=== PATIENT | female | born 1995 | race African-American/Black ===

== ENCOUNTER 2017-02-11 19:03 | Emergency (ER) | payer OTHER ==
[~2017-02-11] VITALS: Ht 170.2 cm; Wt 75.0 kg
[~2017-02-11 19:03] MED LIST: METR-1 PO
[2017-02-11 19:05] VITALS: BP 128/65; PULSE 90; RESP 16; TEMP 98.4; O2SAT 100
--- NOTE | 2017-02-11 19:08 | PD ---
Physical Exam Time Seen by Provider: 19:06 Narrative 21 y/o female presents with cough, congestion, sore throat for one week. VSS seen at triage desk. Awaiting bed placement. Data Data Last Documented VS Vital Signs Date Time Temp Pulse Resp B/P Pulse Ox O2 Delivery O2 Flow Rate FiO2 02/11/17 19:05 98.4 90 16 128/65 100 MDM Medical Record Reviewed: Yes Supervised Visit with NOEL: Yes Nadir Curry Feb 11, 2017 19:08
[2017-02-11] MEDS ORDERED: PENI500T PO (19:21)
--- NOTE | 2017-02-11 19:21 | PD ---
HPI Chief Complaint: Cold / Flu Symptoms Time Seen by Provider: 19:18 Travel History International Travel<30 days: No Contact w/Intl Traveler<30days: No Traveled to known affect area: No History of Present Illness HPI 21-year-old black female presents to emergency Department with complaints of sore throat, cough, congestion, posttussive emesis worse at night when she goes to lay down for bed. Patient's symptoms is been present now for the past week. She denies any fever chills. No shortness of breath or wheezing. No nausea. No bowel pain. No dysuria, frequency. PFSH Past Medical History Hx Anticoagulant Therapy: No ADHD: Yes Anemia: Yes Asthma: Yes Cardiovascular Problems: No Chemotherapy: No Cerebrovascular Accident: No Developmental Delay: No Diabetes: No Diminished Hearing: No Respiratory: No Immunizations Current: Yes Tetanus Vaccination: < 5 Years ?: Not LMP: 2 WEEKS PRIOR : 0 Para: 0 Past Surgical History Surgical History: No Previous Surgery Hysterectomy: No Social History Alcohol Use: No (OCCASIONALLY) Tobacco Use: Yes (1 BLACK MILD/DAY) Substance Use: No Allergies-Medications (Allergen,Severity, Reaction): Coded Allergies: No Known Allergies (Verified , 02/11/17) Reported Meds & Prescriptions Reported Meds & Active Scripts Active Penicillin V Potassium 500 Mg Tab 500 Mg PO Q12HR Review of Systems Except as stated in HPI: all other systems reviewed are Neg Physical Exam Narrative GENERAL: Well-developed, well-nourished in no acute distress. Nontoxic appearing. HEAD: Normocephalic, atraumatic. EYES: Pupils equal round and reactive. Extraocular motions intact. No scleral icterus. No injection or drainage. ENT: TMs clear without erythema. The external auditory canals clear. Nose: clear . Posterior pharynx is erythematous and moist. No tonsillar edema or exudate. Uvula midline. Airway patent. NECK: Trachea midline.Supple, nontender, moves head freely. No central bony tenderness or spasm. CARDIOVASCULAR: Regular rate and rhythm without murmurs, gallops, or rubs. RESPIRATORY: Clear to auscultation. Breath sounds equal bilaterally. No wheezes , rales, or rhonchi. GASTROINTESTINAL: Abdomen soft, non-tender, nondistended. No hepato-splenomegaly , or palpable masses. No guarding. EXTREMITIES: No clubbing, cyanosis, or edema. No joint tenderness, effusion, or edema noted. BACK: Nontender without deformity or crepitance. No flank tenderness. Data Data Last Documented VS Vital Signs Date Time Temp Pulse Resp B/P Pulse Ox O2 Delivery O2 Flow Rate FiO2 02/11/17 19:05 98.4 90 16 128/65 100 MDM Medical Decision Making Medical Screen Exam Complete: Yes Emergency Medical Condition: Yes Medical Record Reviewed: Yes Differential Diagnosis MDM: High Differential diagnoses: Strep throat, viral pharyngitis, mono, peritonsillar abscess, retropharyngeal abscess, Leonardo's angina Narrative Course Patient is given pen VK for acute pharyngitis. Diagnosis Primary Impression: Acute pharyngitis Qualified Code: J02.9 - Acute pharyngitis, unspecified etiology Patient Instructions: General Instructions Departure Forms: Tests/Procedures, Work Release Special Instructions: No work 2 days. Additional Instructions: Rest. Force fluids. [place] gargles. Tylenol and Advil. Chloraseptic [place] Cepastat lozenge. Pen-Vee K. Follow-up with a primary care doctor in one week. Return to the ER if any problems. Med/Other Pt SpecificInfo: Prescription(s) given Scripts Penicillin V Potassium 500 Mg [id number] Mg PO Q12HR #20 TAB Prov:Joseph Cespedes MD 02/11/17 Disposition: 01 DISCHARGE HOME Condition: Stable Anuel Montano Feb 11, 2017 19:20
[2017-02-11] MEDS ORDERED: METR500T10 PO (19:23)
== END 2017-02-11 19:41 | disposition home or self-care (01) ==
LOC: NEPK 19:03
DX: J02.9 Acute pharyngitis, unspecified (principal); R05 Cough; J45.909 Unspecified asthma, uncomplicated; Z72.0 Tobacco use
CPT/HCPCS: 99283

== ENCOUNTER 2017-06-22 21:50 | Emergency (ER) | payer OTHER ==
[~2017-06-22] VITALS: Ht 175.3 cm; Wt 75.0 kg
[~2017-06-22 21:50] MED LIST changes: -METR-1 PO; +METR500T10 PO; +PENI500T PO
[2017-06-22] MEDS ORDERED: IOHEXOL 350 MG/ML 10 ML VIAL (for RAD DIAG) IVCONTRAST ONE (21:51)
[2017-06-22 21:53] VITALS: BP 134/80; PULSE 104; RESP 16; TEMP 100; O2SAT 100
[2017-06-22] MEDS ORDERED: SODIUM CHLOR 0.9% 1000 ML INJ 1,000 ML IV SCH (23:38)
[2017-06-22] MEDS ORDERED: SODIUM CHLORIDE 0.9% FLUSH 10 ML FLUSH IV FLUSH PRN (23:45)
--- NOTE | 2017-06-22 23:53 | PD ---
HPI Chief Complaint: Flank/Kidney Pain Time Seen by Provider: 23:43 Travel History International Travel<30 days: No Contact w/Intl Traveler<30days: No Traveled to known affect area: No History of Present Illness HPI Patient is a 21-year-old female who presents to emergency room with complaints of right upper quadrant abdominal pain. Reports the pain has been ongoing for the past 1-2 days. Patient reports the pain is in her right upper quadrant to her right upper ribs. Patient reports that hurts for her to take a deep breath , denies any trauma, denies any recent travels, denies history of PE or DVT. Denies any chest Pain or shortness of breath at this time. Denies cough or congestion, denies fevers or chills. Patient currently is not on any control pills, no risk factors for PE except for smoking history. Denies n/v/d. Reports that pain to RUQ/right lower ribs have been progressing over the past 2 days PFSH Past Medical History Hx Anticoagulant Therapy: No ADHD: Yes (pt denies) Anemia: Yes (pt denies) Asthma: Yes (pt denies) Cardiovascular Problems: No Chemotherapy: No Cerebrovascular Accident: No Developmental Delay: No Diabetes: No Diminished Hearing: No Respiratory: No Immunizations Current: Yes : 0 Para: 0 Past Surgical History Hysterectomy: No Social History Alcohol Use: No (OCCASIONALLY) Tobacco Use: Yes (1 BLACK MILD/DAY) Substance Use: No Allergies-Medications (Allergen,Severity, Reaction): Coded Allergies: No Known Allergies (Verified , 06/22/17) Reported Meds & Prescriptions Reported Meds & Active Scripts Active Review of Systems General / Constitutional: No: Fever Eyes: No: Visual changes HENT: No: Headaches Cardiovascular: No: Chest Pain or Discomfort Respiratory: Positive: Shortness of Breath Gastrointestinal: Positive: Abdominal Pain, No: Nausea, Vomiting Genitourinary: No: Dysuria Musculoskeletal: No: Pain Skin: No Rash Neurologic: No: Weakness Psychiatric: No: Depression Endocrine: No: Polydipsia Hematologic/Lymphatic: No: Easy Bruising Physical Exam Narrative GENERAL: Mild distress SKIN: Focused skin assessment warm/dry. HEAD: Atraumatic. Normocephalic. EYES: Pupils equal and round. No scleral icterus. No injection or drainage. ENT: No nasal bleeding or discharge. Mucous membranes pink and moist. NECK: Trachea midline. No JVD. CARDIOVASCULAR: Regular rate and rhythm. No murmur appreciated. RESPIRATORY: No accessory muscle use. Clear to auscultation. Breath sounds equal bilaterally. GASTROINTESTINAL: Abdomen soft, increased tenderness to RUQ/Right upper ribs, nondistended. Hepatic and splenic margins not palpable. MUSCULOSKELETAL: No obvious deformities. No clubbing. No cyanosis. No edema. NEUROLOGICAL: Awake and alert. No obvious cranial nerve deficits. Motor grossly within normal limits. Normal speech. PSYCHIATRIC: Appropriate mood and affect; insight and judgment normal. Data Data Last Documented VS Vital Signs Date Time Temp Pulse Resp B/P (MAP) Pulse Ox O2 Delivery O2 Flow Rate FiO2 06/23/17 00:45 82 16 100 Room Air 06/22/17 21:53 100.0 Orders Orders Complete Blood Count With Diff (06/22/17 23:38) Comprehensive Metabolic Panel (06/22/17 23:38) Prothrombin Time / Inr (Pt) (06/22/17 23:38) Act Partial Throm Time (Ptt) (06/22/17 23:38) Urinalysis - C+S If Indicated (06/22/17 23:38) Iv Access Insert/Monitor (06/22/17 23:38) Ecg Monitoring (06/22/17 23:38) Sodium Chlor 0.9% 1000 Ml Inj (Ns 1000 M (06/22/17 23:38) Sodium Chloride 0.9% Flush (Ns Flush) (06/22/17 23:45) Ed Urine Pregnancytest Poc (06/22/17 23:38) Chest, Single Ap (06/22/17 23:46) Ketorolac Inj (Toradol Inj) (06/23/17 00:00) D-Dimer (06/22/17 23:50) Electrocardiogram (06/23/17 ) Ct Pulmonary Angiogram (06/23/17 00:51) Iohexol 350 Inj (Omnipaque 350 Inj) (06/22/17 21:51) Labs Laboratory Tests Test 06/22/17 23:50 White Blood Count 11.0 TH/MM3 Red Blood Count 5.48 MIL/MM3 Hemoglobin 12.2 GM/DL Hematocrit 38.2 % Mean Corpuscular Volume 69.7 FL Mean Corpuscular Hemoglobin 22.3 PG Mean Corpuscular Hemoglobin Concent 31.9 % Red Cell Distribution Width 14.4 % Platelet Count 278 TH/MM3 Mean Platelet Volume 8.4 FL Neutrophils (%) (Auto) 71.1 % Lymphocytes (%) (Auto) 18.8 % Monocytes (%) (Auto) 9.3 % Eosinophils (%) (Auto) 0.4 % Basophils (%) (Auto) 0.4 % Neutrophils # (Auto) 7.8 TH/MM3 Lymphocytes # (Auto) 2.1 TH/MM3 Monocytes # (Auto) 1.0 TH/MM3 Eosinophils # (Auto) 0.0 TH/MM3 Basophils # (Auto) 0.0 TH/MM3 CBC Comment DIFF FINAL Differential Comment Prothrombin Time 11.4 SEC Prothromb Time International Ratio 1.0 RATIO Activated Partial Thromboplast Time 35.1 SEC D-Dimer Quantitative (PE/DVT) 1.25 MG/L FEU Urine Color YELLOW Urine Turbidity CLEAR Urine pH 6.5 Urine Specific [place] 1.031 Urine Protein TRACE mg/dL Urine Glucose (UA) NEG mg/dL Urine Ketones 10 mg/dL Urine Occult Blood TRACE Urine Nitrite NEG Urine Bilirubin NEG Urine Urobilinogen 4.0 MG/DL Urine Leukocyte Esterase NEG Urine RBC 2 /hpf Urine WBC 1 /hpf Urine Squamous Epithelial Cells 2 /hpf Urine Mucus FEW /lpf Microscopic Urinalysis Comment CULT NOT INDICATED Blood Urea Nitrogen 9 MG/DL Creatinine 0.79 MG/DL Random Glucose 94 MG/DL Total Protein 8.0 GM/DL Albumin 3.6 GM/DL Calcium Level 8.8 MG/DL Alkaline Phosphatase 71 U/L Aspartate Amino Transf (AST/SGOT) 15 U/L Alanine Aminotransferase (ALT/SGPT) 19 U/L Total Bilirubin 0.5 MG/DL Sodium Level 138 MEQ/L Potassium Level 3.3 MEQ/L Chloride Level 102 MEQ/L Carbon Dioxide Level 27.1 MEQ/L Anion Gap 9 MEQ/L Estimat Glomerular Filtration Rate 109 ML/MIN [facility] Medical Decision Making Medical Screen Exam Complete: Yes Emergency Medical Condition: Yes Interpretation(s) EKG at 0038: NSR [id number], qt/qtc: 391/431, no acute st or t wave changes Vital Signs Date Time Temp Pulse Resp B/P (MAP) Pulse Ox O2 Delivery O2 Flow Rate FiO2 06/22/17 21:53 100.0 104 16 134/80 (98) 100 Room Air Differential Diagnosis Differential includes PE, cholecystitis, gastritis, pneumonia, electrolyte abnormality, Narrative Course Patient is a 21-year-old female who presents to emergency room complaining of right upper quadrant abdominal pain which is ongoing for the past 1-2 days. Patient reports that pain is worse with deep inspiration, denies any nausea vomiting, denies any chest pain or shortness of breath with her symptoms. Patient reports that her symptoms are pleuritic in nature. Patient placed on a chief substation operator upon arrival to ER. Xray of chest ordered. Labs including LFT's and d.dimer ordered.Will give toradol for pain Vital Signs Date Time Temp Pulse Resp B/P (MAP) Pulse Ox O2 Delivery O2 Flow Rate FiO2 06/23/17 00:45 82 16 100 Room Air 06/23/17 00:41 16 06/22/17 21:53 100.0 104 16 134/80 (98) 100 Room Air Laboratory Tests Test 06/22/17 23:50 White Blood Count 11.0 TH/MM3 (4.0-11.0) Red Blood Count 5.48 MIL/MM3 (4.00-5.30) Hemoglobin 12.2 GM/DL (11.6-15.3) Hematocrit 38.2 % (35.0-46.0) Mean Corpuscular Volume 69.7 FL (80.0-100.0) Mean Corpuscular Hemoglobin 22.3 PG (27.0-34.0) Mean Corpuscular Hemoglobin Concent 31.9 % (32.0-36.0) Red Cell Distribution Width 14.4 % (11.6-17.2) Platelet Count 278 TH/MM3 (150-450) Mean Platelet Volume 8.4 FL (7.0-11.0) Neutrophils (%) (Auto) 71.1 % (16.0-70.0) Lymphocytes (%) (Auto) 18.8 % (9.0-44.0) Monocytes (%) (Auto) 9.3 % (0.0-8.0) Eosinophils (%) (Auto) 0.4 % (0.0-4.0) Basophils (%) (Auto) 0.4 % (0.0-2.0) Neutrophils # (Auto) 7.8 TH/MM3 (1.8-7.7) Lymphocytes # (Auto) 2.1 TH/MM3 (1.0-4.8) Monocytes # (Auto) 1.0 TH/MM3 (0-0.9) Eosinophils # (Auto) 0.0 TH/MM3 (0-0.4) Basophils # (Auto) 0.0 TH/MM3 (0-0.2) CBC Comment DIFF FINAL Differential Comment Prothrombin Time 11.4 SEC (9.8-11.6) Prothromb Time International Ratio 1.0 RATIO Activated Partial Thromboplast Time 35.1 SEC (24.3-30.1) D-Dimer Quantitative (PE/DVT) 1.25 MG/L FEU (0.00-0.50) Urine Color YELLOW (YELLW/STRAW) Urine Turbidity CLEAR (CLEAR) Urine pH 6.5 (5.0-8.5) Urine Specific [place] 1.031 (1.002-1.035) Urine Protein TRACE mg/dL (NEG-TRACE) Urine Glucose (UA) NEG mg/dL (NEG) Urine Ketones 10 mg/dL (NEG) Urine Occult Blood TRACE (NEG) Urine Nitrite NEG (NEG) Urine Bilirubin NEG (NEG) Urine Urobilinogen 4.0 MG/DL (LESS THAN Urine Leukocyte Esterase NEG (NEG) Urine RBC 2 /hpf (0-3) Urine WBC 1 /hpf (0-5) Urine Squamous Epithelial Cells 2 /hpf (0-5) Urine Mucus FEW /lpf (OCC) Microscopic Urinalysis Comment CULT NOT INDICATED Blood Urea Nitrogen 9 MG/DL (7-18) Creatinine 0.79 MG/DL (0.50-1.00) Random Glucose 94 MG/DL (74-106) Total Protein 8.0 GM/DL (6.4-8.2) Albumin 3.6 GM/DL (3.4-5.0) Calcium Level 8.8 MG/DL (8.5-10.1) Alkaline Phosphatase 71 U/L (45-117) Aspartate Amino Transf (AST/SGOT) 15 U/L (15-37) Alanine Aminotransferase (ALT/SGPT) 19 U/L (10-53) Total Bilirubin 0.5 MG/DL (0.2-1.0) Sodium Level 138 MEQ/L (136-145) Potassium Level 3.3 MEQ/L (3.5-5.1) Chloride Level 102 MEQ/L (98-107) Carbon Dioxide Level 27.1 MEQ/L (21.0-32.0) Anion Gap 9 MEQ/L (5-15) Estimat Glomerular Filtration Rate 109 ML/MIN (>89) CTA with normal exam, no PE All labs and studies reviewed with patient in detail. Signs and symptoms of when to return to the ER was reviewed with patient in detail. Patient was given a copy of her studies at discharge. She will follow up with her pcp and will return to ER as needed Diagnosis Primary Impression: Rib pain on right side Patient Instructions: General Instructions Additional Instructions: Please return to ER as needed Please follow up with your primary care doctor in 2-3 days Return to ER if symptoms worsen or progress Med/Other Pt SpecificInfo: Prescription(s) given Scripts Ibuprofen (Ibuprofen) 600 Mg Tab 600 MG PO Q6H Y for Pain/Inflammation, #40 TAB 0 Refills Prov: Erinn Baer DO 06/23/17 Disposition: 01 DISCHARGE HOME Condition: Stable Erinn Baer DO Jun 22, 2017 23:53
[2017-06-22 23:59] LABS: AUTOMATED NEUTROPHIL # 7.8 TH/MM3 (1.8-7.7); BASOPHIL % 0.4 % (0.0-2.0); EOSINOPHIL % 0.4 % (0.0-4.0); HEMATOCRIT 38.2 % (35.0-46.0); HEMO FLAGS DIFF FINAL; LYMPH % 18.8 % (9.0-44.0); LYMPHOCYTE # 2.1 TH/MM3 (1.0-4.8); MEAN CELL VOLUME 69.7 FL (80.0-100.0); MEAN CORPUSCULAR HEMOGLOBIN 22.3 PG (27.0-34.0); MEAN CORPUSCULAR HGB CONC 31.9 % (32.0-36.0); MONO % 9.3 % (0.0-8.0); NEUT % 71.1 % (16.0-70.0); PLATELET COUNT 278 TH/MM3 (150-450); RED BLOOD COUNT 5.48 MIL/MM3 (4.00-5.30); RED CELL DISTRIBUTION WIDTH 14.4 % (11.6-17.2)
[2017-06-23 00:01] LABS: BLOOD, URINE TRACE (NEG); COMMENT (UR) CULT NOT INDICATED; CULTURE IF INDICATED CULT NOT INDICATED; GLUCOSE,URINE NEG (NEG); KETONE, URINE 10 mg/dL (NEG); MUCUS URINE FEW /lpf (OCC); NITRITE,URINE NEG (NEG); PH, URINE 6.5 (5.0-8.5); SQUAMOUS EPITHELIAL CELL URINE 2 /hpf (0-5); URINE COLOR YELLOW (YELLW/STRAW)
[2017-06-23 00:11] LABS: APTT (PATIENT) 35.1 SEC (24.3-30.1); PROTHROMBIN TIME - PATIENT 11.4 SEC (9.8-11.6)
[2017-06-23 00:20] LABS: ALT (GPT) 19 U/L (10-53); ANION GAP 9 MEQ/L (5-15); AST (GOT) 15 U/L (15-37); BICARBONATE 27.1 MEQ/L (21.0-32.0); BLOOD UREA NITROGEN 9 MG/DL (7-18); CHLORIDE 102 MEQ/L (98-107); GLOMERULAR FILTRATION RATE 109 ML/MIN (>89); POTASSIUM 3.3 MEQ/L (3.5-5.1); SODIUM (NA) 138 MEQ/L (136-145)
[2017-06-23 00:23] LABS: ALKALINE PHOSPHATASE 71 U/L (45-117); TOTAL BILIRUBIN ADULT 0.5 MG/DL (0.2-1.0)
--- NOTE | 2017-06-23 00:35 | RADRPT ---
EXAM DATE/TIME: 06/22/2017 23:59 [facility] COMPARISON: No previous studies available for comparison. INDICATIONS : Nontraumatic chest pain under the right breast. MEDICAL HISTORY : None. SURGICAL HISTORY : None. ENCOUNTER: Initial ACUITY: 3 days PAIN SCORE: 6/10 LOCATION: Right chest FINDINGS: A single view of the chest demonstrates the lungs to be symmetrically aerated without evidence of mas s, infiltrate or effusion. The cardiomediastinal contours are unremarkable. Osseous structures are intact. CONCLUSION: No acute disease. Anuel Alexandra MD on June 23, 2017 at 0:33 Board Certified Radiologist. This report was verified electronically.
[2017-06-23 00:45] VITALS: PULSE 82; RESP 16; O2SAT 100
--- NOTE | 2017-06-23 01:55 | RADRPT ---
EXAM DATE/TIME: 06/23/2017 01:39 [facility] COMPARISON: No previous studies available for comparison. INDICATIONS : Right sided chest pain. IV CONTRAST: 75 cc Omnipaque 350 (iohexol) IV RADIATION DOSE: 23.11 CTDIvol (mGy) MEDICAL HISTORY : None SURGICAL HISTORY : None. ENCOUNTER: Initial ACUITY: 2 days PAIN SCALE: 7/10 LOCATION: Right lower chest TECHNIQUE: Volumetric scanning of the chest was performed using a pulmonary embolism protocol MIP images were re constructed. Using automated exposure control and adjustment of the mA and/or kV according to patien t size, radiation dose was kept as low as reasonably achievable to obtain optimal diagnostic quality images. DICOM format image data is available electronically for review and comparison. Follow-up recommendations for detected pulmonary nodules are based at a minimum on nodule size and pa tient risk factors according to Fleischner Society Guidelines. FINDINGS: PULMONARY ARTERIES: No filling defects are seen in the pulmonary arteries through the segmental level. LUNGS: There is no consolidation or pneumothorax . No concerning pulmonary nodule is visualized. PLEURAE: There is no pleural thickening or pleural effusion. MEDIASTINUM: There is good visualization of the great vessels of the middle mediastinum. No evidence of mediastin al or hilar adenopathy/mass. MUSCULOSKELETAL: Within normal limits for patient age. MISCELLANEOUS: The visualized upper abdominal organs demonstrate no acute abnormality. CONCLUSION: Normal examination. Anuel Alexandra MD on June 23, 2017 at 1:49 Board Certified Radiologist. This report was verified electronically.
[2017-06-23] MEDS ORDERED: POTASSIUM CHLORIDE 10 MEQ CONTROLLED RELEASE TAB PO ONE (02:00)
[2017-06-23] MEDS ORDERED: IBUP-232 PO (02:02)
[2017-06-23] MEDS ORDERED: KETOROLAC TROMETHAMINE 30 MG/ML (IVP) VIAL IV PUSH ONE ×2 (02:15)
--- NOTE | 2017-06-23 12:39 | EKG ---
Date Performed: 06/23/2017 Time Performed: 00:38:46 PTAGE: 21 years EKG: Sinus rhythm POSSIBLE RIGHT VENTRICULAR CONDUCTION DELAY NONSPECIFIC T WAVE CHANGES BORDERLINE ECG PREVIOUS TRACING : 07/05/2014 20.13 Compared to previous tracing, nonspecific T wave changes ar e now present. DOCTOR: Kris Weiss Interpretating Date/Time 06/23/2017 12:37:33
== END 2017-06-23 02:39 | disposition home or self-care (01) ==
LOC: NEPE 21:50
DX: R07.81 Pleurodynia (principal); R10.11 Right upper quadrant pain; F17.290 Nicotine dependence, other tobacco product, uncomplicated
CPT/HCPCS: 71010; 71275; 80053; 81001; 84703; 85025; 85379; 85610; 85730; 93005; 96361; 96374; 96375; 99285; J1885; J7030; Q9967

== ENCOUNTER 2017-10-07 19:51 | Emergency (ER) | payer OTHER ==
[~2017-10-07] VITALS: Ht 170.2 cm; Wt 73.0 kg
[~2017-10-07 19:51] MED LIST changes: +IBUP-232 PO; -METR500T10 PO; -PENI500T PO
[2017-10-07 20:26] VITALS: BP 132/62; PULSE 85; RESP 16; TEMP 98.9; O2SAT 100
[2017-10-07] MEDS ORDERED: HYDR50TA94 PO (20:35)
--- NOTE | 2017-10-07 20:39 | PD ---
HPI . Itching Chief Complaint: Skin Problem Time Seen by Provider: 20:32 Travel History International Travel<30 days: No Contact w/Intl Traveler<30days: No Traveled to known affect area: No History of Present Illness HPI Patient presents with a chief complaint of itching. Onset was yesterday. It is diffuse. No modifying factors. She states that she took a teaspoonful of Benadryl yesterday without relief of her symptoms. Her only associated symptom is a cold. She denies any contact with anyone else who has a similar problem. PFSH Past Medical History Medical History: Denies Significant Hx Hx Anticoagulant Therapy: No ADHD: Yes (pt denies) Anemia: Yes (pt denies) Asthma: Yes (pt denies) Cardiovascular Problems: No Chemotherapy: No Cerebrovascular Accident: No Developmental Delay: No Diabetes: No Diminished Hearing: No Respiratory: No Immunizations Current: Yes Tetanus Vaccination: < 5 Years Influenza Vaccination: No ?: Not LMP: sep 10 : 0 Para: 0 Past Surgical History Surgical History: No Previous Surgery Hysterectomy: No Social History Alcohol Use: No (OCCASIONALLY) Tobacco Use: Yes (2 CIGS) Substance Use: No Allergies-Medications (Allergen,Severity, Reaction): Coded Allergies: No Known Allergies (Verified Adverse Reaction, Unknown, 10/07/17) Reported Meds & Prescriptions Reported Meds & Active Scripts Active Hydroxyzine HCl 50 Mg Tab 50 Mg PO QID PRN Review of Systems Except as stated in HPI: all other systems reviewed are Neg HENT: Positive: Congestion Skin: Positive Itching Physical Exam Narrative GENERAL: Awake and alert and in no acute distress. SKIN: Warm and dry. She is scratching. She has some small, scattered areas of erythema. HEAD: Normocephalic/atraumatic. EYES: Pupils are equal. Extraocular movements are intact. NECK: Normal range of motion. CARDIOVASCULAR: Regular rate and rhythm. RESPIRATORY: Nonlabored respirations. MUSCULOSKELETAL: Atraumatic. NEUROLOGICAL: Nonfocal. PSYCHIATRIC: Appropriate mood and affect. Data Data Last Documented VS Vital Signs Date Time Temp Pulse Resp B/P (MAP) Pulse Ox O2 Delivery O2 Flow Rate FiO2 10/07/17 20:26 98.9 85 16 132/62 (85) 100 Orders Orders Ed Discharge Order (10/07/17 20:36) MDM Medical Decision Making Medical Screen Exam Complete: Yes Emergency Medical Condition: Yes Differential Diagnosis The differential diagnosis of the skin rash includes but is not limited to allergic urticaria, scabies, insect bites, contact dermatitis Narrative Course Patient presents for the evaluation and treatment of a rash. She has taken a subtherapeutic dose of Benadryl 1. I will discharge her with a prescription for Atarax. Diagnosis Primary Impression: Itching Patient Instructions: General Instructions, Itchy Skin (ED) Departure Forms: Tests/Procedures Scripts Hydroxyzine HCl (Hydroxyzine HCl) 50 Mg Tab 50 MG PO QID Y for itching, #30 TAB 0 Refills Prov: Daniella Quinones MD 10/07/17 Disposition: 01 DISCHARGE HOME Condition: Stable Daniella Quinones MD Oct 07, 2017 20:39
== END 2017-10-07 20:47 | disposition home or self-care (01) ==
LOC: PHEFT 19:51
DX: L29.9 Pruritus, unspecified (principal)
CPT/HCPCS: 99283

== ENCOUNTER 2017-12-06 15:52 | Emergency (ER) | payer OTHER ==
[~2017-12-06] VITALS: Ht 170.2 cm; Wt 73.5 kg
[~2017-12-06 15:52] MED LIST changes: +HYDR50TA94 PO; -IBUP-232 PO
[2017-12-06 15:54] VITALS: BP 126/78; PULSE 88; RESP 14; TEMP 98.2; O2SAT 99
--- NOTE | 2017-12-06 16:35 | PD ---
HPI Chief Complaint: Neuro Symptoms/ Deficits Time Seen by Provider: 16:30 Travel History International Travel<30 days: No Contact w/Intl Traveler<30days: No Traveled to known affect area: No History of Present Illness HPI 22-year-old female presents to emergency department for evaluation of generalized itching 3 months. Patient has been seen here in emergency department for this in the past. She has not followed up outpatient with dermatology or an city tax auditor. She denies any new exposures. No chest pain or tightness. No difficulty breathing. No oral sensation of swelling or difficulty swallowing. She has taken Benadryl but not today. She tells me that we keep prescribing her medication that does not work. This medication would be Vistaril and review of her records. Patient has no other symptoms to report. PFSH Past Medical History Hx Anticoagulant Therapy: No ADHD: Yes (pt denies) Anemia: Yes Asthma: Yes Cardiovascular Problems: No Chemotherapy: No Cerebrovascular Accident: No Developmental Delay: No Diabetes: No Diminished Hearing: No Respiratory: No Immunizations Current: Yes Tetanus Vaccination: < 5 Years Influenza Vaccination: No ?: Not LMP: 12/05/17 : 0 Para: 0 Past Surgical History Hysterectomy: No Social History Alcohol Use: Yes (OCCASIONALLY) Tobacco Use: Yes (2 CIGS) Substance Use: No Allergies-Medications (Allergen,Severity, Reaction): Coded Allergies: No Known Allergies (Verified Adverse Reaction, Unknown, 12/06/17) Reported Meds & Prescriptions Reported Meds & Active Scripts Active Hydroxyzine HCl 50 Mg Tab 50 Mg PO QID PRN Review of Systems Except as stated in HPI: all other systems reviewed are Neg Physical Exam Narrative GENERAL: Well-nourished female patient in no acute distress. SKIN: Focused skin assessment warm/dry. HEAD: Atraumatic. Normocephalic. EYES: Pupils equal and round. No scleral icterus. No injection or drainage. ENT: Mucosa pink and moist. No erythema or exudates. No uvular edema. No uvular , palatal, or tonsillar deviation. Airway patent. Nasal turbinates appear normal without nasal blood, purulent drainage or septal hematoma. NECK: Trachea midline. No JVD. No stridor CARDIOVASCULAR: Regular rate and rhythm. No murmur appreciated. RESPIRATORY: No accessory muscle use. Clear to auscultation. Breath sounds equal bilaterally. MUSCULOSKELETAL: No obvious deformities. No clubbing. No cyanosis. No edema. NEUROLOGICAL: Awake and alert. No obvious cranial nerve deficits. Motor grossly within normal limits. Normal speech. Data Data Last Documented VS Vital Signs Date Time Temp Pulse Resp B/P (MAP) Pulse Ox O2 Delivery O2 Flow Rate FiO2 12/06/17 15:54 98.2 88 14 126/78 (94) 99 Orders Orders Diphenhydramine Inj (Benadryl Inj) (12/06/17 16:45) Dexamethasone Inj (Decadron Inj) (12/06/17 16:45) Ranitidine Liq (Zantac Liq) (12/06/17 16:45) MDM Medical Decision Making Medical Screen Exam Complete: Yes Emergency Medical Condition: Yes Medical Record Reviewed: Yes Differential Diagnosis Allergic dermatitis versus contact dermatitis versus pruritus versus medication side effect versus allergies Narrative Course 22-year-old female presents to emergency department for evaluation of itching. This is been ongoing for the last 3 months. Patient appears without distress. Her skin is without any rash or erythema. She is given Benadryl, Decadron, Zantac here in emergency department. I have strongly encouraged her to follow- up with a primary care provider, head rigger, seek city tax auditor evaluation. She verbalizes understanding. She'll be discharged at this time. Diagnosis Primary Impression: Pruritus Referrals: Livestock Inspector Primary Care Physician Patient Instructions: General Instructions, Itchy Skin (ED) Additional Instructions: Avoid scratching skin Follow-up with the primary care provider Follow-up with a head rigger Continue Benadryl as directed on the package as needed for itching Med/Other Pt SpecificInfo: No Change to Meds Disposition: 01 DISCHARGE HOME Condition: Stable Karlee Montero FABIANO Dec 06, 2017 16:35
[2017-12-06] MEDS ORDERED: diphenhydrAMINE HCL 50 MG/ML VIAL IM ONE (16:45)
[2017-12-06] MEDS ORDERED: DEXAMETHASONE SOD PHOS 4 MG/ML VIAL IM ONE (16:45)
[2017-12-06] MEDS ORDERED: RANITIDINE HCL SYRUP 150 MG/10 ML UDC PO ONE (16:45)
== END 2017-12-06 17:15 | disposition home or self-care (01) ==
LOC: NEPD 15:52
DX: L29.9 Pruritus, unspecified (principal); J45.909 Unspecified asthma, uncomplicated; F17.210 Nicotine dependence, cigarettes, uncomplicated
CPT/HCPCS: 96372; 99283; J1100; J1200; 99281

== ENCOUNTER 2017-12-24 12:07 | Emergency (ER) | payer OTHER ==
[2017-12-24 12:09] VITALS: BP 130/89; PULSE 83; RESP 16; TEMP 98.9; O2SAT 98
--- NOTE | 2017-12-24 13:24 | PD ---
HPI Chief Complaint: ENT Complaint Time Seen by Provider: 13:17 Travel History International Travel<30 days: No Contact w/Intl Traveler<30days: No Traveled to known affect area: No History of Present Illness HPI 22-year-old female presents for evaluation of nasal congestion, runny nose, decreased taste and smell, cough, worsened night. Symptoms started 1 week ago. She has been using [id number] [place] but symptoms persisted which prompted evaluation. Denies fevers, chills, sore throat, rash, recent travel. No sick contacts. She also requests a test. No other complaints. PFSH Past Medical History Hx Anticoagulant Therapy: No ADHD: Yes (pt denies) Anemia: Yes Asthma: Yes Cardiovascular Problems: No Chemotherapy: No Cerebrovascular Accident: No Developmental Delay: No Diabetes: No Diminished Hearing: No Respiratory: No Immunizations Current: Yes : 0 Para: 0 Past Surgical History Hysterectomy: No Social History Alcohol Use: Yes (OCCASIONALLY) Tobacco Use: Yes (2 CIGS) Substance Use: No Allergies-Medications (Allergen,Severity, Reaction): Coded Allergies: No Known Allergies (Verified Adverse Reaction, Unknown, 12/06/17) Reported Meds & Prescriptions Reported Meds & Active Scripts Active Bromfed DM Liq (Nfzgzuzoinobkfj-Fcsvgkpowkudwfx-ZQ Liq) 30-2-10 Mg/5 Ml Syrp 5 Ml PO Q6H PRN Flonase Nasal Telephone (Fluticasone Nasal Telephone) 50 Mcg/Act Telephone 100 Mcg EACH NARE BID Hydroxyzine HCl 50 Mg Tab 50 Mg PO QID PRN Review of Systems Except as stated in HPI: all other systems reviewed are Neg Physical Exam Narrative GENERAL: Well-nourished female in no acute distress SKIN: Warm and dry. HEAD: Atraumatic. Normocephalic. EYES: Pupils equal and round. No scleral icterus. No injection or drainage. ENT: No nasal bleeding or discharge. Mucous membranes pink and moist. No tenderness to palpation to the maxillary or frontal sinuses. No oral pharyngeal erythema or exudate NECK: Trachea midline. No JVD. CARDIOVASCULAR: Regular rate and rhythm. No murmur appreciated. RESPIRATORY: No accessory muscle use. Clear to auscultation. Breath sounds equal bilaterally. Data Data Last Documented VS Vital Signs Date Time Temp Pulse Resp B/P (MAP) Pulse Ox O2 Delivery O2 Flow Rate FiO2 12/24/17 12:09 98.9 83 16 130/89 (103) 98 Orders Orders Ed Urine Pregnancytest Poc (12/24/17 13:25) Ed Discharge Order (12/24/17 13:39) [facility] Medical Decision Making Medical Screen Exam Complete: Yes Emergency Medical Condition: Yes Medical Record Reviewed: Yes Differential Diagnosis Rhinitis, sinusitis, bronchitis, pneumonia, influenza Narrative Course Physical examination is consistent with rhinitis. Urine test is negative. The patient is stable for discharge. Diagnosis Primary Impression: Rhinitis Additional Instructions: Medication as prescribed. Follow-up with primary care physician as needed. Return for any emergent medical conditions. Med/Other Pt SpecificInfo: Prescription(s) given Scripts Ghuehtfnhuawsls-Baxjmrpjedrmiqp-DN Liq (Bromfed DM Liq) 30-2-10 Mg/5 Ml Syrp 5 ML PO Q6H Y for COUGH AND/OR COLD SYMPTOMS, #1 BOTTLE 0 Refills Prov: Zoila Amado MD 12/24/17 Fluticasone Nasal Telephone (Flonase Nasal Telephone) 50 Mcg/Act Telephone 100 MCG EACH NARE BID for Allergies, #1 BOTTLE 0 Refills Prov: Zoila Amado MD 12/24/17 Disposition: 01 DISCHARGE HOME Condition: Stable Nadir Curry Dec 24, 2017 13:24
[2017-12-24] MEDS ORDERED: FLUT1SPR5 EACH NARE (13:38)
[2017-12-24] MEDS ORDERED: BROMSYP PO (13:38)
== END 2017-12-24 14:06 | disposition home or self-care (01) ==
LOC: NEPK 12:07
DX: J31.0 Chronic rhinitis (principal); J45.909 Unspecified asthma, uncomplicated; D64.9 Anemia, unspecified; Z72.0 Tobacco use
CPT/HCPCS: 99283

== ENCOUNTER 2017-12-30 23:04 | Emergency (ER) | payer OTHER ==
[~2017-12-30] VITALS: Ht 170.2 cm; Wt 75.0 kg
[~2017-12-30 23:04] MED LIST changes: +BROMSYP PO; +FLUT1SPR5 EACH NARE
[2017-12-30 23:08] VITALS: BP 129/62; PULSE 101; RESP 18; TEMP 99.8; O2SAT 100
--- NOTE | 2017-12-30 23:34 | PD ---
HPI Chief Complaint: Cold / Flu Symptoms Time Seen by Provider: 23:23 Travel History International Travel<30 days: No Contact w/Intl Traveler<30days: No Traveled to known affect area: No History of Present Illness HPI 22yo F with no significant PMH presents to the ED with multiple complaints. Pt is complaining of persistent nasal congestion, cough and fever of 102F last night. Pt said she has midsternal chest pain that is sharp and worst with coughing. Said she vomited today. Said she is sob. Denies any abdominal pain , focal weakness or numbness. Pt was seen in [place] 12/24/17 and discharge with flonase and gizepypvagbloi-mburdursjkvoqcq-FW. Pt said it wasnt helping. Denies any family history of sudden cardiac . Former smoker. PFSH Past Medical History Hx Anticoagulant Therapy: No ADHD: Yes (pt denies) Anemia: Yes (low iron) Asthma: Yes Cardiovascular Problems: No Chemotherapy: No Cerebrovascular Accident: No Developmental Delay: No Diabetes: No Diminished Hearing: No Respiratory: No Immunizations Current: Yes Tetanus Vaccination: < 5 Years Influenza Vaccination: No ?: Not LMP: 12/11/2017 : 0 Para: 0 Past Surgical History Surgical History: No Previous Surgery Hysterectomy: No Social History Alcohol Use: Yes (OCCASIONALLY) Tobacco Use: Yes (2 CIGS) Substance Use: No Allergies-Medications (Allergen,Severity, Reaction): Coded Allergies: No Known Allergies (Verified Adverse Reaction, Unknown, 12/30/17) Reported Meds & Prescriptions Reported Meds & Active Scripts Active Tylenol (Acetaminophen) 325 Mg Tab 650 Mg PO Q6H PRN Robitussin Lingering Cold (Dextromethorphan HBr) 15 Mg Cap 30 Mg PO Q8H PRN 5 Days Bactrim DS (Sulfamethoxazole-Trimethoprim) 800-160 Mg Tab 1 Tab PO BID Bromfed DM Liq (Rjbxnsjfzixdela-Ntxgcjemhyngabw-UR Liq) 30-2-10 Mg/5 Ml Syrp 5 Ml PO Q6H PRN Flonase Nasal [place] (Fluticasone Nasal [place]) 50 Mcg/Act [place] 100 Mcg EACH NARE BID Hydroxyzine HCl 50 Mg Tab 50 Mg PO QID PRN Review of Systems Except as stated in HPI: all other systems reviewed are Neg Physical Exam Narrative GEN: 22yo F in mild distress. SKIN: Warm and dry. HEAD: Normocephalic, atraumatic. Eyes: Pupils reactive and equal to light. ENT: Nose: +Increased nasal turbinate bilaterally. Throat: Clear. Uvula midline. No tonsillar exudate. CV: S1, S2. Lungs: CTA B/L, equal breath sounds. Abd: soft, +TTP suprapubic ttp. No RLQ ttp. No rebound tenderness or guarding. Ext: soft, no edema. Neuro: No focal neurologic deficits. Data Data Last Documented VS Vital Signs Date Time Temp Pulse Resp B/P (MAP) Pulse Ox O2 Delivery O2 Flow Rate FiO2 12/30/17 23:08 99.8 101 18 129/62 (84) 100 Orders Orders Electrocardiogram (12/30/17 23:31) Basic Metabolic Panel (Bmp) (12/30/17 23:31) Complete Blood Count With Diff (12/30/17 23:31) Magnesium (Mg) (12/30/17 23:31) Prothrombin Time / Inr (Pt) (12/30/17 23:31) Act Partial Throm Time (Ptt) (12/30/17 23:31) Troponin I (12/30/17 23:31) Chest, Single Ap (12/30/17 23:31) Ibuprofen (Motrin) (12/30/17 23:45) Influenzae A/B Antigen (12/30/17 23:31) Urinalysis - C+S If Indicated (12/30/17 23:31) Guaifen-Cod 200-20 Mg/10ml Liq (Robituss (12/30/17 23:45) Pseudoephedrine (Sudafed) (12/30/17 23:45) Ed Urine Pregnancytest Poc (12/30/17 23:35) Ondansetron Inj (Zofran Inj) (12/31/17 00:00) Sodium Chlor 0.9% 1000 Ml Inj (Ns 1000 M (12/31/17 00:00) Urine Culture (12/31/17 00:01) Ed Discharge Order (12/31/17 00:57) Labs Laboratory Tests Test 12/31/17 00:01 White Blood Count 10.4 TH/MM3 Red Blood Count 5.34 MIL/MM3 Hemoglobin 12.8 GM/DL Hematocrit 38.9 % Mean Corpuscular Volume 72.9 FL Mean Corpuscular Hemoglobin 24.0 PG Mean Corpuscular Hemoglobin Concent 32.9 % Red Cell Distribution Width 15.1 % Platelet Count 279 TH/MM3 Mean Platelet Volume 8.7 FL Neutrophils (%) (Auto) 69.5 % Lymphocytes (%) (Auto) 20.2 % Monocytes (%) (Auto) 9.1 % Eosinophils (%) (Auto) 0.5 % Basophils (%) (Auto) 0.7 % Neutrophils # (Auto) 7.2 TH/MM3 Lymphocytes # (Auto) 2.1 TH/MM3 Monocytes # (Auto) 0.9 TH/MM3 Eosinophils # (Auto) 0.0 TH/MM3 Basophils # (Auto) 0.1 TH/MM3 CBC Comment DIFF FINAL Differential Comment Prothrombin Time 10.9 SEC Prothromb Time International Ratio 1.1 RATIO Activated Partial Thromboplast Time 27.2 SEC Urine Color YELLOW Urine Turbidity HAZY Urine pH 6.5 Urine Specific [place] 1.036 Urine Protein 30 mg/dL Urine Glucose (UA) NEG mg/dL Urine Ketones 10 mg/dL Urine Occult Blood NEG Urine Nitrite NEG Urine Bilirubin NEG Urine Urobilinogen 2.0 MG/DL Urine Leukocyte Esterase NEG Urine RBC 4 /hpf Urine WBC LESS THAN 1 /hpf Urine Squamous Epithelial Cells 4 /hpf Urine Bacteria MOD /hpf Urine Mucus FEW /lpf Microscopic Urinalysis Comment CULTURE INDICATED Blood Urea Nitrogen 10 MG/DL Creatinine 0.77 MG/DL Random Glucose 83 MG/DL Calcium Level 9.1 MG/DL Magnesium Level 1.9 MG/DL Sodium Level 136 MEQ/L Potassium Level 3.8 MEQ/L Chloride Level 101 MEQ/L Carbon Dioxide Level 28.2 MEQ/L Anion Gap 7 MEQ/L Estimat Glomerular Filtration Rate 111 ML/MIN Troponin I LESS THAN 0.02 NG/ML [facility] Medical Decision Making Medical Screen Exam Complete: Yes Emergency Medical Condition: Yes Interpretation(s) EKG: NSR 88bpm. Normal axis. No ST segment elevation or depression. Differential Diagnosis URI vs. influenza vs. UTI vs. musculoskeletal pain Narrative Course 22yo F with URI symptoms. Urine negative. Pt states she has chest pain but it is very musculoskeletal and pain. Pt said she has the chest pain even without coughing but is tender to touch and pt has been coughing for 2 weeks. Pt given sudafed, robitussin with codeine, NS IVF, ibuprofen and zofran. Labs reviewed, no leukocytosis. H/H normal. BMP unremarkable. Troponin negative. UA showed no leukocyte but moderate bacteria and culture indicated. Pt has suprapubic ttp and wakes up to urinate at night so will cover with antibiotics. Influenza negative. CXR negative. Pt reevaluated at bedside and no longer nauseous. Pt feels a little better. Do not think this is cardiac. Will have pt follow up with PMD. Diagnosis Primary Impression: Viral syndrome Patient Instructions: General Instructions Departure Forms: Tests/Procedures Additional Instructions: Please follow up with your primary care physician in 2-3 days. Return to the ED if symptoms worsen. Med/Other Pt SpecificInfo: Prescription(s) given Scripts Acetaminophen (Tylenol) 325 Mg Tab 650 MG PO Q6H Y for PAIN SCALE 1 TO 4, #20 TAB 0 Refills Prov: Lorraine Beaver DO 12/31/17 Dextromethorphan (Robitussin Lingering Cold) 15 Mg Cap 30 MG PO Q8H Y for COUGH for 5 Days, #30 CAP 0 Refills Prov: Lorraine Beaver DO 12/31/17 Sulfamethoxazole-Trimethoprim (Bactrim DS) 800-160 Mg Tab 1 TAB PO BID for Infection, #14 TAB 0 Refills Prov: Lorraine Beaver DO 12/31/17 Disposition: 01 DISCHARGE HOME Condition: Stable Lorraine Beaver DO Dec 30, 2017 23:34
[2017-12-30] MEDS ORDERED: IBUPROFEN 600 MG TAB PO ONE (23:45)
[2017-12-30] MEDS ORDERED: PSEUDOEPHEDRINE HCL 30 MG TAB PO ONE (23:45)
[2017-12-30] MEDS ORDERED: guaiFENesin/CODEINE SYRUP 200 MG/20 MG/10 ML CUP PO ONE (23:45)
--- NOTE | 2017-12-30 23:52 | RADRPT ---
EXAM DATE/TIME: 12/30/2017 23:38 [place] COMPARISON: CHEST SINGLE AP, June 22, 2017, 23:59. INDICATIONS : Cough. MEDICAL HISTORY : Asthma. SURGICAL HISTORY : None. ENCOUNTER: Initial ACUITY: 3 days PAIN SCORE: 0/10 LOCATION: Bilateral chest FINDINGS: A single view of the chest demonstrates the lungs to be symmetrically aerated without evidence of mas s, infiltrate or effusion. The cardiomediastinal contours are unremarkable. Osseous structures are intact. CONCLUSION: 1. No acute cardiopulmonary disease. Ramsey Guzman MD on December 30, 2017 at 23:51 Board Certified Radiologist. This report was verified electronically.
[2017-12-31] MEDS ORDERED: ONDANSETRON HCL 4 MG/2 ML VIAL IV PUSH ONE
[2017-12-31] MEDS ORDERED: SODIUM CHLOR 0.9% 1000 ML INJ 1,000 ML IV ONE
[2017-12-31 00:30] LABS: AUTOMATED NEUTROPHIL # 7.2 TH/MM3 (1.8-7.7); BASOPHIL # 0.1 TH/MM3 (0-0.2); BASOPHIL % 0.7 % (0.0-2.0); EOSINOPHIL % 0.5 % (0.0-4.0); HEMATOCRIT 38.9 % (35.0-46.0); HEMOGLOBIN 12.8 GM/DL (11.6-15.3); LYMPH % 20.2 % (9.0-44.0); LYMPHOCYTE # 2.1 TH/MM3 (1.0-4.8); MEAN CELL VOLUME 72.9 FL (80.0-100.0); MEAN CORPUSCULAR HGB CONC 32.9 % (32.0-36.0); MEAN PLATELET VOLUME 8.7 FL (7.0-11.0); MONO % 9.1 % (0.0-8.0); MONOCYTE # 0.9 TH/MM3 (0-0.9); NEUT % 69.5 % (16.0-70.0); PLATELET COUNT 279 TH/MM3 (150-450); RED BLOOD COUNT 5.34 MIL/MM3 (4.00-5.30); RED CELL DISTRIBUTION WIDTH 15.1 % (11.6-17.2); WHITE BLOOD COUNT 10.4 TH/MM3 (4.0-11.0)
[2017-12-31 00:31] LABS: BACTERIA, URINE MOD /hpf; BILIRUBIN, URINE NEG (NEG); BLOOD, URINE NEG (NEG); GLUCOSE,URINE NEG (NEG); KETONE, URINE 10 mg/dL (NEG); MUCUS URINE FEW /lpf (OCC); NITRITE,URINE NEG (NEG); PH, URINE 6.5 (5.0-8.5); SQUAMOUS EPITHELIAL CELL URINE 4 /hpf (0-5); URINE COLOR YELLOW (YELLW/STRAW); URINE LEUKOCYTE ESTERASE NEG (NEG)
[2017-12-31 00:45] LABS: INTERNATIONAL NORMALIZED RATIO 1.1 RATIO; PROTHROMBIN TIME - PATIENT 10.9 SEC (9.8-11.6)
[2017-12-31 00:49] LABS: TROPONIN I LESS THAN 0.02 NG/ML (0.02-0.05)
[2017-12-31 00:50] LABS: BICARBONATE 28.2 MEQ/L (21.0-32.0); BLOOD UREA NITROGEN 10 MG/DL (7-18); CALCIUM 9.1 MG/DL (8.5-10.1); CHLORIDE 101 MEQ/L (98-107); CREATININE 0.77 MG/DL (0.50-1.00); GLOMERULAR FILTRATION RATE 111 ML/MIN (>89); GLUCOSE,RANDOM 83 MG/DL (74-106); MAGNESIUM 1.9 MG/DL (1.5-2.5); SODIUM (NA) 136 MEQ/L (136-145)
[2017-12-31] MEDS ORDERED: TYLE325T PO (00:54)
[2017-12-31] MEDS ORDERED: ROBICAP2 PO (00:54)
[2017-12-31] MEDS ORDERED: BACT800T5 PO (00:54)
--- NOTE | 2017-12-31 12:22 | EKG ---
Date Performed: 12/31/2017 Time Performed: 00:10:54 PTAGE: 22 years EKG: Sinus rhythm WITH SINUS ARRHYTHMIA POSSIBLE LEFT ATRIAL ENLARGEMENT POSSIBLE RIGHT VENTRICULAR CONDUCTION DELAY B ORDERLINE ECG PREVIOUS TRACING : 06/23/2017 00.38 Since the prior tracing, there has been no significant alejandra DOCTOR: Khris Gotti Interpretating Date/Time 12/31/2017 12:20:58
== END 2017-12-31 01:57 | disposition home or self-care (01) ==
LOC: NEPD 23:04
DX: B34.9 Viral infection, unspecified (principal); R10.819 Abdominal tenderness, unspecified site; B95.2 Enterococcus as the cause of diseases classified elsewhere; R07.89 Other chest pain; R94.31 Abnormal electrocardiogram [ECG] [EKG]; J45.909 Unspecified asthma, uncomplicated; F17.210 Nicotine dependence, cigarettes, uncomplicated
CPT/HCPCS: 71045; 80048; 81001; 83735; 84484; 84703; 85025; 85610; 85730; 87077; 87086; 87186; 87804; 93005; 96374; 99285; J2405; J7030